=== PATIENT | female | born 1990 | race Caucasian/White ===

== ENCOUNTER 2018-09-11 18:02 | Emergency (ER) | payer OTHER, SELFPAY ==
[2018-09-11 18:12] VITALS: BP 124/89; PULSE 104; RESP 16; TEMP 37; O2SAT 98; BMI 37.5
--- NOTE | 2018-09-11 18:17 | [facility].EDGENADL ---
ED Disposition Clinical Impression: Atypical chest pain, Elevated liver enzymes, Epigastric pain, Hypokalemia Anemia Qualifiers: Anemia type: unspecified type Qualified Code(s): D64.9 - Anemia, unspecified Diarrhea Qualifiers: Diarrhea type: unspecified type Qualified Code(s): R19.7 - Diarrhea, unspecified Disposition: Home, Self-Care Condition on Discharge: Good Instructions: DI for Abdominal Pain-Adult, DI for Atypical Chest Pain, DI for Hypokalemia, DI for Diarrhea and Traveler's Diarrhea -- Adult Additional Instructions: Call your primary care doctor tomorrow. Arrange follow-up as soon as possible for anemia, elevated liver enzymes, low potassium, abdominal and chest pain. [id number] multivitamin with iron daily. Return to the emergency room if worsening abdominal pain, vomiting, fever greater than 102 degrees, worsening chest pain or shortness of breath. Prescriptions: Potassium Chloride [K-Tab ER 20 mEq] 20 meq PO DAILY #7 tab Ondansetron [Zofran 4mg ODT] 4 mg PO TIDP PRN #10 tab.rapdis PRN Reason: Nausea And Vomiting Referrals: Mahad Rubi [Primary Care Provider] - - Critical Care Critical Care Time: No Attestation: On 09/11/18, the high probability of a clinically significant, sudden or life threatening deterioration of the following system(s) required my full and direct attention, intervention and personal management. The time I documented below is in addition to time spent performing reported procedures but includes the following listed in this critical care notation. Medical Decision Making - Daryl Inquiry Pt receiving controlled substance: No Vital Signs: 09/11/18 18:12 Temperature 98.6 F Temperature Source Oral Pulse Rate [Left Radial] 104 H Respiratory Rate 16 Blood Pressure [Right Arm] 124/89 Blood Pressure Mean [Right Arm] 100 Blood Pressure Source [Right Arm] Automatic Cuff Blood Pressure Position [Right Arm] Sitting 02 Sat by Pulse Oximetry 98 Oxygen Delivery Method Room Air - Lab Data Lab Results 09/11/18 18:10: Urine Color Yellow, Urine Appearance Clear, Urine pH 6.0, Ur Specific [place] 1.025, Urine Protein Negative, Urine Glucose (UA) Negative, Urine Ketones Negative, Urine Blood Negative, Urine Nitrate Negative, Urine Bilirubin Negative, Urine Urobilinogen 0.2, Ur Leukocyte Esterase Negative, Urine WBC Occasional, Ur Squamous Epith Cells Occasional, Urine Bacteria Trace, Hyaline Casts Occasional 09/11/18 18:10: Urine HCG, Qual Negative 09/11/18 18:35: WBC 6.9, RBC 5.27, Hgb 8.6 L, Hct 30.4 L, MCV 57.7 L, MCH 16.4 L, MCHC 28.4 L, RDW 20.3 H, Plt Count 395, MPV 7.1 L, Neut % (Auto) 54.2, Lymph % (Auto) 35.1, [place] % (Auto) 7.1, Eos % (Auto) 2.9, Baso % (Auto) 0.7, Neut # (Auto) 3.7, Lymph # (Auto) 2.4, [place] # (Auto) 0.5, Eos # (Auto) 0.2, Baso # (Auto) 0.1 09/11/18 18:35: Sodium 138, Potassium 3.1 L, Chloride 103, Carbon Dioxide 25, Anion Gap 13.1, BUN 10, Creatinine 0.89, Estimated Creat Clear 160, Estimated GFR 75, Est GFR ( Amer) 91, Glucose 99, Calcium 8.2 L, Total Bilirubin 0.6, AST 169 H, ALT 126 H, Alkaline Phosphatase 140 H, Troponin I < 0.02, Total Protein 8.1, Albumin 3.5, Globulin 4.6 H, Albumin/Globulin Ratio 0.8 L, Lipase 132 09/11/18 18:35: D-Dimer 241 09/11/18 19:35: Stool Occult Blood Negative Result diagrams: 09/11/18 18:35 09/11/18 18:35 Orders (Tests/Meds): ED MEDICATIONS Discontinued Medications Generic Name Dose Route Start Last Admin Trade Name Freq PRN Reason Stop Dose Admin Ondansetron HCl 4 mg 09/11/18 18:41 09/11/18 18:47 Zofran 4mg/2ml Vial IV 09/11/18 18:42 4 mg ONCE ONE Administration Potassium Chloride 40 meq 09/11/18 19:33 09/11/18 19:42 Klor-Con 20meq Tablet PO 09/11/18 19:34 40 meq ONCE ONE Administration Sodium Chloride 1,000 ml 09/11/18 19:38 09/11/18 19:41 Sod Chlor 0.9% 1000ml Bag IV 09/11/18 19:39 1,000 ml BOLUS ONE Administration ORDERS Category Date Time Status
--- NOTE | 2018-09-11 18:18 | XR_ITS ---
XR chest 2V HISTORY: ITS.REASON: chest pain ORDERING PHYSICIAN: Jonah Laura MD PATIENT AGE: 27 years COMPARISON: None FINDINGS: The cardiomediastinal silhouette and pulmonary vascularity are within normal limits. The lungs are clear without infiltrates, suspicious nodules, or pleural effusions. No acute bony abnormalities. IMPRESSION: Negative chest, no acute finding
[2018-09-11 18:40] LABS: Microscopic, Urine URINE MICROSCOPIC (MICROSCOPIC)
[2018-09-11 18:55] LABS: Appearance,Urine CLEAR (Clear); Blood, Urine Negative (Negative); Color,Urine YELLOW (Yellow); Glucose,Urine (UA) Negative (Negative); Ketones,Urine Negative (Negative); Leukocyte Esterase,Urine Negative (Negative); Nitrate,Urine Negative (Negative); Protein,Urine Negative (Negative); Specific Gravity, Urine 1.025 (1.005-1.030); Urobilinogen,Urine 0.2 EU/dl (0.2)
[2018-09-11 18:57] LABS: Bilirubin,Urine Negative (Negative)
[2018-09-11 18:58] LABS: Urine Pregnancy, HCG Qual. Negative (Negative)
[2018-09-11 18:59] LABS: Basophils # 0.1 K/mm3 (0-0.2); Basophils % 0.7 % (0.1-2.0); Eosinophils # 0.2 K/mm3 (0.0-0.4); Eosinophils % 2.9 % (0.1-12.0); Hematocrit 30.4 % (37.0-47.0); Hemoglobin 8.6 g/dL (12.2-16.2); Lymphocytes # 2.4 K/mm3 (0.7-4.5); Lymphocytes % 35.1 % (10-50); Mean Corpuscular HGB Conc 28.4 g/dL (31.8-35.4); Mean Corpuscular Hemoglobin 16.4 pg (27.0-31.2); Mean Corpuscular Volume 57.7 fl (81-99); Mean Platelet Volume 7.1 fl (7.4-10.4); Monocytes # 0.5 K/mm3 (0.1-1.0); Monocytes % 7.1 % (1.7-9.3); Neutrophils # 3.7 K/mm3 (1.8-7.8); Neutrophils % 54.2 % (37.0-80.0); Platelet Count 395 K/mm3 (142-424); Red Blood Count 5.27 M/mm3 (4.20-5.40); Red Cell Distribution Width 20.3 % (11.5-17.5); White Blood Count 6.9 K/mm3 (4.8-10.8)
[2018-09-11 19:10] LABS: Bacteria,Urine Trace /lpf; Hyaline Casts,Urine Occasional #/lpf (0); Squamous Epithelial Cell,Urine Occasional #/hpf (0-5); WBC,Urine Occasional #/hpf (0-3)
[2018-09-11 19:23] LABS: D-Dimer 241 ng/mL (0-400)
[2018-09-11 19:25] LABS: Alanine Aminotransferase 126 U/L (12-78); Albumin Level 3.5 gm/dL (3.4-5.0); Albumin/Globulin Ratio 0.8 (1.1-1.8); Alkaline Phosphatase 140 U/L (46-116); Anion Gap 13.1 mEq/L (5-15); Aspartate Amino Transferase 169 U/L (15-37); Bilirubin,Total 0.6 mg/dL (0.2-1.0); Blood Urea Nitrogen 10 mg/dL (7-18); Calcium 8.2 mg/dL (8.5-10.1); Carbon Dioxide 25 mmol/L (21.0-32.0); Chloride 103 mmol/L (98-107); Creatinine Clearance Estimated 160 mL/min (50-200); Creatinine,Serum 0.89 mg/dL (0.55-1.02); Estimated Glomerular Filt Rate 75 ml/min (>60); GFR (African American) 91 ML/MIN (>60); Globulin 4.6 gm/dl (1.3-3.2); Glucose 99 mg/dL (74-106); Lipase 132 u/L (73-393); Potassium 3.1 mmoL/L (3.5-5.1); Sodium 138 mmol/L (136-145); Total Protein,Serum 8.1 gm/dL (6.4-8.2); Troponin I < 0.02 ng/ml (0.00-0.06)
[2018-09-11 19:39] LABS: Occult Blood,Stool Negative (Negative)
[2018-09-11 20:08] VITALS: BP 120/80; PULSE 100; RESP 20; TEMP 37; O2SAT 98
[2018-09-13 10:57] LABS: Hep A Ab, IgM Negative (Negative); Hepatitis B Core Antibody IgM Negative (Negative); Hepatitis B Surface Antigen Negative (Negative)
[2018-09-13 18:44] LABS: Hepatitis C Antibody 0.3 s/co ratio (0.0-0.9)
== END 2018-09-11 20:35 | disposition home or self-care (01) ==
PROVIDERS: Emergency Provider Emergency Medicine
DX: R07.89 Other chest pain (principal); E87.6 Hypokalemia; D64.9 Anemia, unspecified; R19.7 Diarrhea, unspecified
CPT/HCPCS: 71046; 80053; 80074; 81001; 81025; 82272; 83690; 84484; 85025; 85378; 93005; 96365; 96375; 99283; G0328; J2405